=== PATIENT | male | born 1975 | race African-American/Black ===

== ENCOUNTER 2023-08-11 05:50 | Emergency (ER) | payer MEDICAID ==
[~2023-08-11] VITALS: Ht 185.4 cm; Wt 100.0 kg
[2023-08-11 06:19] VITALS: BP 141/96; PULSE 61; RESP 18; TEMP 98.6; O2SAT 100
== END 2023-08-11 08:44 | disposition left against medical advice (07) ==
LOC: ER 06:26
DX: M27.2 Inflammatory conditions of jaws (principal); Z53.21 Procedure and treatment not carried out due to patient leaving prior to being seen by health care provider